=== PATIENT | female | born 2000 | race Caucasian/White ===

== ENCOUNTER → 2018-10-14 | Day surgery (SDC) | payer BC ==
[~2018-10-14] VITALS: Ht 149.9 cm; Wt 53.7 kg
[2018-10-14] VITALS (7 sets, daily range): BP systolic 108–125; BP diastolic 60–76; PULSE 74–107; TEMP 98.4–99.1
[~2018-10-14] MED LIST: AMOXICILLIN 50500 MG PO; PIRMELLA 1/351 TAB PO; TORADOL 10MG TA10 MG PO
--- NOTE | 2018-10-14 15:02 | NUR ---
TO RM AT 1415- CALL LIGHT IN REACH MOTHER AT BEDSIDE.
--- NOTE | 2018-10-14 18:20 | NUR ---
returned to room per cart, ambulated into bathroom and then to be awake, and alert, IV infusing per dial-a-flow at 100ml/hr, was unable to void while in bathroom, instructed on ordering something to eat, mother at bedside, denies needs at this time
--- NOTE | 2018-10-14 18:45 | NUR ---
has ordered something to eat
--- NOTE | 2018-10-14 18:50 | NUR ---
bedside shift report given to INDY Little
--- NOTE | 2018-10-14 20:05 | NUR ---
Pt. has met discharge criteria. Pt. given health summary, pt. education, medication instructions, home med list. Pt. voices understanding of instructions. Pt. denies further questions. INT discontinued from lt. wrist. Pt. dressed and escorted out by this nurse.
== END ==
LOC: SDCO 14:05
DX: N20.1 Calculus of ureter (principal); Z88.2 Allergy status to sulfonamides; Z83.3 Family history of diabetes mellitus; Z82.49 Family history of ischemic heart disease and other diseases of the circulatory system; Z84.1 Family history of disorders of kidney and ureter; Z80.52 Family history of malignant neoplasm of bladder
CPT/HCPCS: C1769; J0690; J1100; J2405; J2704; J3010; J7120